=== PATIENT | male | born 1965 | race Caucasian/White ===

== ENCOUNTER 2024-01-17 16:20 | Emergency (ER) | payer OTHER, SELFPAY ==
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
== END 2024-01-17 17:51 | disposition expired ==
PROVIDERS: Emergency Provider Emergency Medicine
DX: I46.9 Cardiac arrest, cause unspecified (principal); S21.332A Puncture wound without foreign body of left front wall of thorax with penetration into thoracic cavity, initial encounter; W34.00XA Accidental discharge from unspecified firearms or gun, initial encounter
CPT/HCPCS: 99283